=== PATIENT | female | born 1975 | race American Indian/Alaskan Native ===

== ENCOUNTER 2019-08-27 16:24 | Emergency (ER) | payer BC ==
--- NOTE | 2019-08-27 17:43 | EDM.PDOC ---
ED HPI GENERAL MEDICAL PROBLEM - General Chief Complaint: General Stated Complaint: TOOTH ACHE Time Seen by Provider: 08/27/19 17:30 Source of Information: Reports: Patient History Limitations: Reports: No Limitations - History of Present Illness INITIAL COMMENTS - FREE TEXT/NARRATIVE: This lady is here for a toothache. She complains of pain to the lower jaw incisors around to the left molars been going on for weeks she's missing a number of teeth she's having trouble getting her teeth pulled because of problems with insurance and the [facility] so forth Left Lower Face/Facial Pain Score (Numeric/FACES): 8 - Related Data Allergies Allergy/AdvReac Type Severity Reaction Status Date / Time No Known Allergies Allergy Verified 08/27/19 17:26 Home Meds: Home Meds NK [No Known Home Meds] 08/27/19 [History] Past Medical History Gastrointestinal History: Reports: None Social & Family History - Tobacco Use Smoking Status *Q: Unknown Ever Smoked - Caffeine Use Caffeine Use: Reports: Coffee - Recreational Drug Use Recreational Drug Use: No ED ROS GENERAL - Review of Systems Review Of Systems: ROS reveals no pertinent complaints other than HPI. ED EXAM, GENERAL - Physical Exam Exam: See Below Exam Limited By: No Limitations General Appearance: Alert, WD/WN, Mild Distress Throat/Mouth: Other (A number of missing teeth. Looks like good oral hygiene otherwise. The left lower incisors canines and bicuspids are severely carious no obvious abscess) Course - Vital Signs Last Recorded V/S: Last Vital Signs Temp 36.1 C 08/27/19 17:19 Pulse 62 08/27/19 17:19 Resp 16 08/27/19 17:19 BP 113/62 08/27/19 17:19 Pulse Ox 99 08/27/19 17:19 Departure - Departure Time of Disposition: 17:40 Disposition: Home, Self-Care 01 Condition: Fair Clinical Impression: Pain due to dental caries - Discharge Information Referrals: PCP,None [Primary Care Provider] - Additional Instructions: Take penicillin VK 500 mg 4 times daily for 10 days. For pain take Narco 5/325 ( #20) one or 2 every 4 hours. This medication can cause sedation and impaired driving or operating machinery and can cause addiction. See the dentist [facility]
== END 2019-08-27 17:54 | disposition home or self-care (01) ==
LOC: JP.ED 16:24
DX: K02.9 Dental caries, unspecified (principal)
CPT/HCPCS: 99282

== ENCOUNTER 2019-09-13 18:00 | Emergency (ER) | payer BC ==
--- NOTE | 2019-09-13 18:27 | EDM.PDOC ---
ED HPI GENERAL MEDICAL PROBLEM - General Chief Complaint: ENT Problem Stated Complaint: TOOTH PAIN Time Seen by Provider: 09/13/19 18:25 Source of Information: Reports: Patient History Limitations: Reports: No Limitations - History of Present Illness INITIAL COMMENTS - FREE TEXT/NARRATIVE: pt arrived with dental pain and she does not have a dental appt until Oct 04. Onset: Gradual, Other ( she was seen on the and she was given 15 norco. She just was able to get her insurance reinstated. ) Duration: Hour(s): Location: Reports: Face Associated Symptoms: Reports: No Other Symptoms Lower Face/Facial Pain Score (Numeric/FACES): 7 - Related Data Allergies Allergy/AdvReac Type Severity Reaction Status Date / Time No Known Allergies Allergy Verified 08/27/19 17:26 Home Meds: Home Meds NK [No Known Home Meds] 08/27/19 [History] Past Medical History Gastrointestinal History: Reports: None Social & Family History - Caffeine Use Caffeine Use: Reports: Coffee - Recreational Drug Use Recreational Drug Use: No ED ROS ENT - Review of Systems Review Of Systems: See Below Constitutional: Reports: No Symptoms HEENT: Reports: Dental Pain Respiratory: Reports: No Symptoms Cardiovascular: Reports: No Symptoms Endocrine: Reports: No Symptoms GI/Abdominal: Reports: No Symptoms : Reports: No Symptoms Musculoskeletal: Reports: No Symptoms ED EXAM, ENT - Physical Exam Exam: See Below Text/Narrative:: pt arrived with dental pain in the front lower she is having no marked swelling. She is trying to work but is having alot of difficulty. She has a dental appt to prepare for extraction of all of her teeth and prepare for dentures. This appt is not until . Exam Limited By: No Limitations General Appearance: Alert, Anxious, Moderate Distress Ears: Normal TMs Nose: Normal Inspection Mouth/Throat: Dental Tenderness, Other (pt has very carious teeth. ) Head: Atraumatic Neck: Normal Inspection Respiratory/Chest: No Respiratory Distress Cardiovascular: Regular Rate, Rhythm GI/Abdominal: Soft, Non-Tender (Female) Exam: Deferred Rectal (Female) Exam: Deferred Back: Normal Inspection Extremities: Normal Inspection Neurological: Alert, Oriented, Normal Cognition Course - Vital Signs Last Recorded V/S: Last Vital Signs Temp 35.8 C 09/13/19 18:16 Pulse 74 09/13/19 18:16 Resp 16 09/13/19 18:16 BP 123/82 09/13/19 18:16 Pulse Ox 98 09/13/19 18:16 - Orders/Labs/Meds Meds: Medications Discontinued Medications Generic Name Dose Route Start Last Admin Trade Name Deborah PRN Reason Stop Dose Admin Lidocaine 4 ml 09/13/19 18:36 Lta 360 Kit Top Soln TOP 09/13/19 18:37 ONETIME ONE - Re-Assessments/Exams Free Text/Narrative Re-Assessment/Exam: 09/13/19 18:43 pt was given a bottle of 4% lidocaine to apply packs to the area. Departure - Departure Time of Disposition: 18:33 Disposition: Home, Self-Care 01 Condition: Fair Clinical Impression: Carious teeth, Dental infection - Discharge Information Referrals: PCP,None [Primary Care Provider] - Forms: ED Department Discharge Care Plan Goals: keep dental appt. use the 4 % lidcaine to put packs over the site, tramodol 50mg q6h prn for pain. refill penvk 500mg bid for next 10 days.
[2019-09-13] MEDS ORDERED: Lidocaine 4% Top Soln LTA 4 ML Syringe Kit TOP ONE (18:36)
[2019-09-13] MEDS ORDERED: Lidocaine 4% Top Soln 50 ML Bottle ONE (18:43)
[2019-09-13] MEDS ORDERED: Lidocaine 4% Top Soln 50 ML Bottle TOP ONE (18:49)
== END 2019-09-13 18:58 | disposition home or self-care (01) ==
LOC: JP.ED 18:00
DX: K02.9 Dental caries, unspecified (principal); K04.7 Periapical abscess without sinus
CPT/HCPCS: 99282; A9270